=== PATIENT | female | born 1970 | race Two or more races ===

== ENCOUNTER 2023-06-17 14:12 | Emergency (ER) | payer SELFPAY ==
[~2023-06-17] VITALS: Ht 160 cm; Wt 64.0 kg
[2023-06-17] MEDS ORDERED: KETOROLAC TROMETH 60MG/2ML VIAL IM ONE (16:00)
[2023-06-17] MEDS ORDERED: DexAMETHasone SOD PHOS 10MG/1ML VIAL INJ IM ONE (16:00)
[2023-06-17] MEDS ORDERED: HYDROcodone-ACET 5/325MG TAB PO ONE (16:00)
[2023-06-17] MEDS ORDERED: IBUP1TAB5 PO (16:05)
[2023-06-17] MEDS ORDERED: CYCL-839 PO (16:05)
[2023-06-17 18:48] VITALS: BP 152/85; PULSE 82; RESP 17; TEMP 98; O2SAT 96
== END 2023-06-17 19:07 | disposition home or self-care (01) ==
LOC: ER 14:12
DX: M54.59 Other low back pain (principal); I10 Essential (primary) hypertension; Z86.73 Personal history of transient ischemic attack (TIA), and cerebral infarction without residual deficits
CPT/HCPCS: 72100; 96372; 99284; J1100; J1885